=== PATIENT | female | born 1990 | race Caucasian/White ===

== ENCOUNTER 2016-12-26 16:40 | Emergency (ER) | payer OTHER ==
[2016-12-26 16:56] LABS: Collection Type CLEAN CATCH
[2016-12-26 16:57] LABS: Bacteria FEW /HPF (NEGATIVE); COMPLETE URINE MICROSCOPIC? YES; WBC 0-2 /HPF (0-5)
--- NOTE | 2016-12-26 17:24 | ERPHSYRPT ---
- History of Present Illness Time Seen by Provider: 12/26/16 16:41 Source: patient Patient Subjective Stated Complaint: PT REPORTS SWELLING TO LYMPH NODE IN LEFT NECK BEGINNING YESTERDAY-DRY COUGH-LOW GRADE FEVER-DENIES N/V/D-REPORTS SORENESS TO NECK BUT DENIES PAIN Triage Nursing Assessment: PT PINK WARM ET DRY-A & O X 3-RESP NONLAOBRED ET EASY -LUNGS CLEAR ET EQUAL BILATERALLY Physician History: CC: neck pain HX: 26 y/o healthy patient of STEFANO Bruner. She had couple day hx of rhinorrhea, sore throat, and left cervical adenopahty. Low grade fever. Minimal cough. Had prior BTL. Missed LMP. Enrolled in [employer]. No allergies or meds. Severity: mild Allergies/Adverse Reactions: No Known Drug Allergies Allergy (Unverified 12/26/16 16:51) Home Medications: Clonazepam 0.5 mg [Klonopin 0.5 MG] 0.5 mg PO UD 12/26/16 [History] Hx Tetanus, Diphtheria Vaccination/Date Given: Yes Hx Influenza Vaccination/Date Given: Yes Hx Pneumococcal Vaccination/Date Given: Yes Immunizations Up to Date: Yes - Review of Systems Constitutional: Fever (low grade), Malaise Eyes: No Symptoms Ears, Nose, & Throat: Nose Congestion, Throat Pain Respiratory: Cough (minimal) Abdominal/Gastrointestinal: No Vomiting Skin: No Rash Neurological: No Headache - Past Medical History Pertinent Past Medical History: Yes Psycho-Social History: Depression - Past Surgical History Past Surgical History: Yes Musculoskeletal: Orthopedic Surgery Female Surgical History: Section, Tubal Ligation - Social History Smoking Status: Current some day smoker Exposure to second hand smoke: No Drug Use: none Patient Lives Alone: No - Nursing Vital Signs Nursing Vital Signs: Initial Vital Signs Temperature 98.9 F Temperature Source Oral Pulse Rate 127 Respiratory Rate 18 Blood Pressure [Right Arm] 141/99 Pain Intensity 0 - Physical Exam General Appearance: alert Eye Exam: PERRL/EOMI Ears, Nose, Throat Exam: moist mucous membranes, pharyngeal erythema, No tonsillar exudate Neck Exam: supple, other (left anterior cervical adenitis that is tender. No redness. No thyroid tenderness.) Respiratory Exam: normal breath sounds Cardiovascular Exam: regular rate/rhythm (HR 96) Extremity Exam: normal inspection, normal range of motion Neurologic Exam: alert, oriented x 3, cooperative, sensation nml, No motor deficits Skin Exam: warm, dry, No rash SpO2 Interpretation: normal SpO2: 100 Oxygen Delivery: Room Air - Course Nursing assessment & vital signs reviewed: Yes Ordered Tests: Active Orders 24 hr Category Date Time Status Clean Catch Urine Specimen STAT Care 12/26/16 16:52 Active HCG,QUALITATIVE URINE Stat Lab 12/26/16 16:50 Completed UA W/ MICROSCOPIC Stat Lab 12/26/16 16:50 Completed Lab/Rad Data: Laboratory Results 12/26/16 12/26/16 Range/Units 16:50 16:50 Ur Collection Type CLEAN CATCH Urine Color LT.YELLOW (YELLOW) Urine Appearance SLIGHTLY CLOUDY (CLEAR) Urine pH 7.0 (5-6) Ur Specific Webb 1.010 (1.005-1.025) Urine Protein NEGATIVE (Negative) Urine Glucose (UA) NEGATIVE (NEGATIVE) mg/dL Urine Ketones NEGATIVE (NEGATIVE) Urine Nitrite NEGATIVE (NEGATIVE) Urine Bilirubin NEGATIVE (NEGATIVE) Urine Urobilinogen 0.2 (0-1) mg/dL Urine WBC (Auto) TRACE (NEGATIVE) Urine RBC (Auto) NEGATIVE (0-5) Roosevelt/ul Urine Microscopic WBC 0-2 (0-5) /HPF Urine Bacteria FEW (NEGATIVE) /HPF Urine HCG, Qual NEGATIVE (Negative) Specimen Received 12/26/16:1650 - Progress Progress Note: 12/26/16 17:21 She had likely viral syndrome but has cervical adenitis. UA and HCG neg. HR better with resting. Will Rx keflex at her request. Warned of sun exposure risk with abtx. Advised primary care follow up in 1-2 weeks if not better. Counseled pt/family regarding: lab results, diagnosis, need for follow-up - Departure Time of Disposition: 17:22 Departure Disposition: Home Clinical Impression: Acute cervical adenitis Condition: Stable Critical Care Time: No Referrals: LOUIS MAJOR [Primary Care Provider] - CLAUDINE BRUNER NP [NON-STAFF PHY W/O PRIVILEGES] - Instructions: Fever (Symptom) -- Adult, Lymphadenopathy Additional Instructions: Follow up with STEFANO Bruner in 1-2 weeks if not completely better. Sooner for worsening or concerns. Tylenol or ibuprofen as directed for fever/discomfort. Rx keflex- avoid excess sun exposure. Prescriptions: Cephalexin Mh 500 mg [Keflex 500 mg] 1 cap PO QID #40 capsule
[2016-12-26 17:33] VITALS: BP 125/80; PULSE 104; O2SAT 99
== END 2016-12-26 17:33 | disposition home or self-care (01) ==
LOC: ED 16:40
DX: L04.0 Acute lymphadenitis of face, head and neck (principal); R50.9 Fever, unspecified; R53.81 Other malaise; R05 Cough; R09.81 Nasal congestion
CPT/HCPCS: 81000; 84703; 99282